=== PATIENT | female | born 1990 | race Caucasian/White ===

== ENCOUNTER 2025-05-28 14:06 | Inpatient (IN) | payer OTHER, SELFPAY ==
[2025-05-28] VITALS (52 sets, daily range): BP systolic 101–139; BP diastolic 49–82; PULSE 60–90; RESP 16; TEMP 36.2–36.6; O2SAT 95–100; BMI 36.3
--- OUTSIDE RECORDS SUMMARY | 2025-05-28 15:13 | XMS_ITS | Clinical Summary ---
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
--- OUTSIDE RECORDS SUMMARY | 2025-05-28 15:13 | XMS_ITS | Clinical Summary ---
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 Gender Identity Not on file Sexual Orientation Not on file Plan of Treatment Health Maintenance Due Date Last Done Comments Cervical Cancer Screening Pa p Smear (Age 30 to 64) Every 3 Years 1992 Annual Physical 1995 Hepatitis C 2010 DTaP, Tdap and Td Vaccines ( 1 - Tdap) 2011 Hepatitis B Vaccines (1 of 3 - 19+ 3-dose series) 2011 HPV Vaccines (1 - 3-dose SCD M series) 2019 Cervical Cancer Screening Pa p with HPV Testing (Age 30 to 64) Every 5 Years 2022 Cervical Cancer Screening with HPV 2022 COVID-19 Vaccine (2023-2 5 season) 2024 Meningococcal B Vaccine Aged Out No l onger eligible based on patient's age to complete this topic Meningococcal Vaccine Aged Out No ezra bj eligible based on patient's age to complete this topic Pneumococcal Vaccine: Pediat rics (0 to 5 Years) and At-Risk Patients (6 to 49 Years) Aged Out No longer eligible b ased on patient's age to complete this topic RSV Immunizations Under 20 Months Aged Out No longer eligible based on patient's age to complete this topic Insurance [facility] Care Teams Document Control Supervisor Relationship Specialty Start Date End Date None, Provider, PCP - General 12/06/20
[2025-05-28 16:26] LABS: Hematocrit 36.5 % (37.0-47.0); Hemoglobin 12.2 g/dL (12.0-15.0); Immature Granulocyte Percent A 1.1 % (0-0.5); Lymphocytes Absolute Auto 2.19 K/mm3 (0.9-3.2); Mean Corpuscular HGB Conc 33.4 g/dl (32-36); Mean Corpuscular Hemoglobin 31.0 pg (26-34); Mean Corpuscular Volume 92.6 fl (80-100); Nucleated Red Blood Cells Absolute Auto 0.000 K/mm3 (0.0-0.012); Nucleated Red Blood Cells Perc 0.0 % (0.0-0.2); Platelet Count Result 295 k/mm3 (150-375); Red Blood Count 3.94 M/mm3 (4.2-5.4); White Blood Count 13.3 K/mm3 (4.5-10.0)
--- NOTE | 2025-05-28 16:39 | LDADM ---
This patient, Carisa Steven, was admitted to Labor/Delivery/Recovery 104 on 05/28/25 at 14:06. Plans for labor, pain management and were discussed with patient. Patient/family oriented to hospital policies and general routines including ID bracelet, bed and alarms, visiting hours, pain management, procedures, bathroom and other care routines, personal items, smoking policy, room service/diet and guest tray routines, security routines, and visiting hours. Patient/Family are encouraged to report perceived risks to care and to ask questions if they do not understand what they are told or what they should do. See OBIX for further documentation.
[2025-05-28 17:14] LABS: Syphilis IgG/IgM Antibody Non-Reactive (Nonreactive)
[2025-05-28 17:17] LABS: OBXCEM ROM Plus Positive (Negative)
--- NOTE | 2025-05-28 19:45 | WPDANESEPP ---
Anes - Eval Pre Procedure Procedure: labor epidural Date/Time: 05/28/25 19:45 Surgeon: brianne Preop Diagnosis: pain during labor Pre Op Diagnosis: contractions and leaking fluid Patient Data Age: 34 Gender: F Height: 1.75 m Weight: 111.58 kg Last Vital Signs Temp 36.2 C L 05/28/25 18:51 Pulse 80 05/28/25 14:34 Resp 16 05/28/25 14:34 BP 137/68 05/28/25 14:34 O2 Del Method Room Air 05/28/25 16:33 Allergies Allergy/AdvReac Type Severity Reaction Status Date / Time No Known Allergies Allergy Verified 05/28/25 16:47 Home Medications ?Medication ?Instructions ?Recorded ?Confirmed ?Type vitamin-ferrous sulfate tablet PO DAILY 05/28/25 History 27 mg iron-folic acid 0.8 mg tablet Laboratory Tests 05/28/25 05/28/25 05/28/25 14:50 16:12 16:13 WBC 13.3 H K/mm3 (4.5-10.0) RBC 3.94 L M/mm3 (4.2-5.4) Hgb 12.2 g/dL (12.0-15.0) Hct 36.5 L % (37.0-47.0) MCV 92.6 fl (80-100) MCH 31.0 pg (26-34) MCHC 33.4 g/dl (32-36) RDW 13.1 % (11.5-14.5) Plt Count 295 k/mm3 (150-375) MPV 10.4 fl (7.4-10.4) Immature Gran % (Auto) 1.1 H % (0-0.5) Neut % (Auto) 76.0 H % (45.5-73.1) Lymph % (Auto) 16.4 L % (18.3-44.2) [place] % (Auto) 5.6 % (2.6-8.5) Eos % (Auto) 0.7 % (0-4.4) Baso % (Auto) 0.2 % (0.2-1.2) Lymph # (Auto) 2.19 K/mm3 (0.9-3.2) [place] # (Auto) 0.8 H K/mm3 (0.1-0.6) Eos # (Auto) 0.1 K/mm3 (0-0.3) Baso # (Auto) 0.0 K/mm3 (0.0-0.1) Abs Immat Gran (auto) 0.15 H K/mm3 (0.00-0.031) Absolute Neuts (auto) 10.1 H K/mm3 (1.3-6.7) Absolute Nucleated RBC 0.000 K/mm3 (0.0-0.012) Nucleated RBC % 0.0 % (0.0-0.2) Membranes Rupture Rom plus positive (Negative) Syphilis IgG/IgM Ab Non-reactive (Nonreactive) Blood Type O Positive Antibody Screen Negative Patient hx anesthesia problems: none Family hx anesthesia problems: none Results Review: All pre-operative results and documents have been reviewed as part of the pre-operative evaluation. [facility] Past Medical History Medical History (Updated 05/28/25 @ 19:46 by Keya Hugo CRNA) Migraines, neuralgic Depression Anxiety Scoliosis GERD (gastroesophageal reflux disease) IUP (intrauterine ), incidental Obesity (BMI 30-39.9) Social History Social History Smoking status: Never smoker Second hand tobacco smoke exposure: Yes Substance use: never Lack of Transportation: No Lack of Food: Never True Current Housing: I Have Housing Concerned About Future Housing: No Difficulty Paying Gas/Electric Bills: No Difficulty Paying for Meds: No Currently Unemployed: No Education: High School Diploma/GED Difficulty w/ Childcare or Family Care: No Spiritual care concerns: No Exam Day of Procedure 05/28/25 19:45
[2025-05-28] MEDS: ONDANSETRON INJ 4 MG/2 ML VIAL IV PUSH (20:40)
[2025-05-28] MEDS: LACTATED RINGERS 1,000 ML 125 ML IV CONT (20:46)
[2025-05-29] VITALS (76 sets, daily range): BP systolic 89–133; BP diastolic 48–85; PULSE 53–267; RESP 16–18; TEMP 36.1–37; O2SAT 94–100
[2025-05-29] MEDS: LACTATED RINGERS 1,000 ML 125 ML IV CONT (01:22)
[2025-05-29] MEDS: AMPICILLIN SODIUM 2 GM in SODIUM CHLORIDE 0.9% IV 100 ML 200 ML IVPB (01:30)
[2025-05-29] MEDS: OXYTOCIN 30 UNITS/NS 500 ML 30 UNITS/500 ML BAG IV CONT (02:49)
[2025-05-29] MEDS: ONDANSETRON INJ 4 MG/2 ML VIAL IV PUSH (03:45)
--- NOTE | 2025-05-29 04:31 | WPDHPUPDATE1 ---
History and Physical Update Update Date/Time: 05/29/25 04:31 History and Physical has been reviewed, including an updated exam of the patient. There are NO changes in the patient's condition. Risks, benefits, and alternatives have been discussed and questions answered. Patient agrees to proceed with procedure.
--- NOTE | 2025-05-29 04:31 | PM.OBPRVD ---
OB - Vaginal Delivery Note Procedure Delivery date: 05/29/25 Delivery augmentation: Pitocin Delivery monitor: External FHT and Internal Uterine Route of delivery: Episiotomy description: None Laceration Description: Labial Delivery repair: vicryl Specimen: No Quantitative Blood Loss (ml): 300 Anesthesia type: Epidural Disposition: Floor Complications: No immediate complications
[2025-05-29] MEDS: OXYTOCIN 30 UNITS/NS 500 ML 30 UNITS/500 ML BAG 125 UNITS IV CONT (04:57)
--- NOTE | 2025-05-29 07:00 | OBPPTRN ---
Patient transferred to post room #285 via wheelchair. Support person present. Oriented to unit, room, information board, rooming in, admission packet and security measures. Patient verbalizes understanding.
[2025-05-29] MEDS: IBUPROFEN 600 MG TABLET PO ×2 (07:54→21:12)
[2025-05-29] MEDS: WITCH HAZEL 40 PADS 1 PAD TOPICAL (07:56)
[2025-05-29] MEDS: BENZOCAINE 20% AER SPR (*SP) 56 GM CAN 1 SPRAY TOPICAL (07:57)
--- NOTE | 2025-05-29 08:20 | WPDANLDPN2 ---
Anes-Prog Note L&D Date/Time: 05/29/25 08:20 Comfortable throughout: labor and delivery Neuraxial method: epidural Epidural/Spinal procedure site: clean & non-tender Neuro status: Neuro function grossly intact. Cardiovascular status: normal Respiratory status: normal Airway patency: baseline Mental status: baseline Post-Op hydration status: normal Vital Signs: Last Vital Signs Temp 37.0 C 05/29/25 05:25 Pulse 85 05/29/25 06:01 Resp 16 05/28/25 14:34 BP 127/81 05/29/25 06:01 Pulse Ox 98 05/29/25 04:19 O2 Del Method Room Air 05/28/25 16:33 Pain score (VAS): 3 I/O: Intake & Output 05/28/25 05/29/25 05/29/25 23:59 07:59 15:59 Intake Total 575 Output Total 1500 Balance -925 Patient feedback: Patient satisfied with anesthetic care.
--- NOTE | 2025-05-29 09:00 | PC.NURSE ---
0900: Met with patient because it is time for baby to eat and he needs to be awakened. Grandma is holding baby currently and is reluctant to hand baby to mom. Patient is encouraged to place baby skin to skin and we will check back in 10 minutes. 0915: Returned to patient room. Baby is skin to skin but has not shown any feeding cues. Mom used football hold at the first feeding and we place baby in football at the left breast. He is sleepy and refuses to open his mouth. We worked for several minutes without success and then tried to use the cross cradle hold. He was unable to give a wide open mouth and did not try to root or search for the breast. After trying for about 10 minutes without a latch, we decided to take a short break and try again in about a half hour. Mom is keeping baby skin to skin. Father present in room. 1010: Returned to room to attempt latching again. Mom was given a nipple shield at the first feeding. We have attempted without the shield and her breast tissue is quite soft and easy to shape for latching. Latch without a shield is possible but due to baby's reluctance to open wide we used the shield again at this attempt. Baby is in cross cradle hold and mom is struggling with positioning so after a few minutes we moved back to football hold. Baby is still very sleepy but we are able to express drops of colostrum into the shield. He latched with maximum effort from RN and suckled several times. We heard a swallow. Baby remained latched for about 5 minutes and gave very few sucks during that time and only would suck with stimulation. We removed baby and mom was able to express more drops of colostrum that we placed on his lips. Mom is exhausted and baby is still sleeping so we are completing this feeding and will try again within 3 hours. Mom knows to watch for feeding cues and to call out if baby is ready to feed at any time. Primary RN updated.
[2025-05-29] MEDS: DOCUSATE SODIUM 100 MG CAPSULE PO (12:56)
[2025-05-29] MEDS: MULTIVIT/MIN/PREN/FOL AC/IRON TABLET 1 TAB PO (12:56)
[2025-05-29] MEDS: ACETAMINOPHEN 325 MG TABLET 650 MG PO (13:01)
--- NOTE | 2025-05-29 17:40 | PC.NURSE ---
Patient requested assistance. Patient had been attempting for about 10 minutes with and without the nipple shield. He has been much more awake at this time than the previous feedings. Baby was not able to maintain a latch but mom expressed many drops of colostrum that baby licked off the nipple. We attempted again to get him to latch without the shield but he fusses and cries without trying to latch. When we attempt to calm him before latching again, he sleeps and does not show any feeding cues. Mom feels like baby is ready to take a break so she is encouraged to offer the breast anytime baby wants to feed and to call for assistance with tonight. Primary RN updated.
[2025-05-30 06:04] LABS: Hematocrit 34.1 % (37.0-47.0); Hemoglobin 11.1 g/dL (12.0-15.0)
[2025-05-30] MEDS: ACETAMINOPHEN 325 MG TABLET 650 MG PO (07:32)
[2025-05-30] MEDS: DOCUSATE SODIUM 100 MG CAPSULE PO (07:33)
[2025-05-30] MEDS: MULTIVIT/MIN/PREN/FOL AC/IRON TABLET 1 TAB PO (07:33)
[2025-05-30 08:00] VITALS: BP 121/78; PULSE 72; RESP 16; TEMP 36.4; O2SAT 97
--- NOTE | 2025-05-30 09:00 | PC.NURSE ---
Returned baby to patient room after physician visit. Patient excited that baby took all of the pumped breast milk (15ml) she had in the bottle. She is aware that support is available today and that she can call out for assistance any time. Night RN initiated the ineffective feeding plan and started the patient pumping and supplementing after each feeding attempt.
[2025-05-30 11:43] VITALS: BP 107/62; PULSE 66; RESP 20; TEMP 36.4; O2SAT 96
[2025-05-30] MEDS: IBUPROFEN 600 MG TABLET PO (16:15)
--- NOTE | 2025-05-30 16:15 | PC.NURSE ---
Patient requests assistance with . She says that cross cradle position works best for her. She is still using the nipple shield at each feeding. We unwrapped and attempted to wake baby. He was alert for a short time before falling asleep again. Mom has improved in her positioning and handling of baby. He spit up some bubbles as we were attempting to latch. He was reluctant to open his mouth and we did not achieve a latch. He began to gag so we moved him to the crib and then when burped, he spit up some thick mucous and undigested breast milk. Mom was advised to hold him upright for a few minutes to allow him to recover. Bulb syringe use demonstrated. Mom wants to wait another half hour and then try again. If baby is unable to latch, mom has some expressed milk to feed by bottle. Patient is continuing to pump at each feeding time. Primary RN updated.
[2025-05-30] MEDS: SIMETHICONE 80 MG TAB.CHEW PO (16:16)
--- NOTE | 2025-05-30 17:35 | PC.NURSE ---
Patient called out to request her breast milk from the refrigerator. Baby had a large poopy diaper and then was awake and ready to eat. They attempted to breastfeed but mom states that baby was unable to latch. Reviewed that after a good attempt, it is ok to move on to the next step of the feeding plan. She gave all of the pumped milk and then topped him off with Enfamil. Father of baby present for diaper change and he bottle fed baby. Mom would like a [facility] referral for the [place] office faxed before discharge. Patient is encouraged to call out for additional assistance as needed. Primary RN updated.
[2025-05-30 20:11] VITALS: BP 144/67; PULSE 71; RESP 16; TEMP 36.4; O2SAT 97
--- NOTE | 2025-05-31 07:53 | P.PNOB_ITS ---
OB - PN: Subj Subjective Date/time seen: 05/31/25 07:53 Interval history: pp day 2 desires d/c home OB - PN: Obj Data Labs 05/30/25 05:30 OB - PN A/P Plan day: 2 Plan: routine care and discharge home Time Spent With Patient Time: Total time spent is greater than 50% in coordination of care (as documented) at patient's floor/unit and/or counseling patient: Review of Systems 2 Review of Systems: All systems reviewed & are unremarkable except as noted in HPI and below Exam 2 Const: General: cooperative and healthy appearing Neck: Neck: normal visual inspection Resp: Effort & Inspection: normal respiratory effort Cardio: Rate: regular rate GI: Other: incision CDI Skin: General skin exam: normal color Neuro: General: patient oriented x3 Extrem: General: normal to inspection Psych: Appearance: grossly normal
--- NOTE | 2025-05-31 07:56 | P.DS_ITS ---
DS: Admitting Diagnosis Discharge Date 05/31/25 Admitting Diagnosis labor DS: Discharge Diagnosis Discharge Diagnosis (1) (normal spontaneous vaginal delivery): Code(s): O80 - Encounter for full-term uncomplicated delivery Status: Acute OB - DS: Summary OB Procedures : None OB Procedures Intrapartum: Spontaneous Vag Delivery OB Procedures: : None Peripartum Data Laceration Description: Labial Episiotomy description: None Time Spent with Patient Time attestation: Total time spent providing and/or coordinating discharge services: Discharge Plan Discharge Attending physician on discharge: Oneal Bach Discharging Clinician: Dianelys Luis Patient Disposition: Home Activity: pelvic rest Diet: regular Patient Instructions: Antibiotic Form Patient Language: Nepalese Stand Alone Forms: General Discharge Information Follow-up/Referrals: Oneal Bach MD [Physician] - 1 Week Discharge Medications: Continued vit-ferrous sulfat-FA 27 mg iron- 0.8 mg tablet PO DAILY Date of admission: 05/28/25 14:06 Primary Care Provider: PHYSICIAN,WOODS SUPERINTENDENT Admitting Provider: Oneal Bach Attending physician on admission: Oneal Bach Condition: Stable
[2025-05-31] MEDS: MULTIVIT/MIN/PREN/FOL AC/IRON TABLET 1 TAB PO (08:27)
[2025-05-31] MEDS: ACETAMINOPHEN 325 MG TABLET 650 MG PO (08:28)
[2025-05-31 08:35] VITALS: BP 110/69; PULSE 69; RESP 16; TEMP 37.2; O2SAT 95
--- NOTE | 2025-05-31 10:00 | PC.NURSE ---
In the room to discuss circumcision care with mother and father. Mother very tearful and asking lots of questions about mental health resources, help and general caring for baby questions. Resources for Lilian Chacho taken out of welcome packet and visually shown and handed to patient and other mental health papers discussed from welcome packet. will be in later to discussed and wic assistance and care coordination consult is in under baby, they will be by later to also give patient resources as needed. See care coordination notes under baby
--- NOTE | 2025-05-31 11:42 | PC.NURSE ---
Patient viewed the discharge video Mother & Baby Care, The First Two Weeks. Patient was given the opportunity and encouraged to ask questions. Patient verbalized understanding of information shared and has been given the mother/baby guide for home reference.
[2025-05-31] MEDS: TETANUS,DIPHTHERIA,AC PERTUSSIS ADULT (0.5 ML) BOOSTRIX IM (12:33)
--- NOTE | 2025-05-31 16:15 | PCCCNOTE ---
Per Care Coordination: Met with pt. today during rounds. Received consult for no care. Pt. does not have an answer as to why she waited for establishing care. This is her first baby. FOB is Alex who is not at bedside. Pt. has all necessary supplies at home including a car seat, basinett, clothing, formula, a breast pump and diapers. Pt. reports she is nervous but excited to go home. Resources provided for pt. for review. Pt. already has information for post resources and WIC at bedside. She plans to use WIC and will follow up with the [place] office at discharge. Pt. reports she has support at home. Plans to establish with [facility] Dr. Kapoor at discharge. Denies any other needs.
--- NOTE | 2025-05-31 16:24 | PC.NURSE ---
1100. Introductions were made, then consulted with patient to assess needs related to . Mom states infant is getting better at latching but still struggles. She reports she has been pumping every 3 hours and is currently doing the 15-15-15 plan. Mom is a little emotional and tearful, but she states today has been better for her. She reports she was up a lot overnight with the infant. Discussed with mother her plans to feed her infant and the experience so far. Resources provided for inpatient and outpatient services with the feeding sheet, mom/baby guide and name written on the communication board. Mother voiced understanding of information and will call if there is a request for assistance. Reported to the Primary RN.?
[2025-06-02 10:18] VITALS: BP 119/76; PULSE 76; RESP 16; TEMP 36.7; O2SAT 98
== END 2025-05-31 17:00 | disposition home or self-care (01) | DRG 807 ==
LOC: ANHLDR 15:18 → ANHOB2 05-29 06:55
PROVIDERS: Admitting Provider Obstetrics & Gynecology; Visit Provider Obstetrics & Gynecology
DX: O42.02 Full-term premature rupture of membranes, onset of labor within 24 hours of rupture (principal); Z37.0 Single live birth; O40.3XX0 Polyhydramnios, third trimester, not applicable or unspecified; Z3A.40 40 weeks gestation of pregnancy; O70.0 First degree perineal laceration during delivery
CPT/HCPCS: 36415; 84112; 85014; 85018; 85025; 86593; 86850; 86900; 86901; 90715; A9270; J0290; J2405; J2590; J2795; J7120